=== PATIENT | male | born 1985 | race Caucasian/White ===

== ENCOUNTER 2018-08-05 14:48 | Emergency (ER) | payer SELFPAY ==
[2018-08-05] MEDS ORDERED: ONDANSETRON 4 MG (ODT) TAB ONE (16:26)
--- NOTE | 2018-08-05 17:26 | EDPHYS ---
Physician Documentation [facility] Name: Allan Daniel Age: 32 yrs Sex: Male : 1985 Arrival Date: 08/05/2018 Time: 14:51 Bed 17 Private MD: None, None ED Physician Onofre Rivers HPI: 08/05 16:15 This 32 yrs old Male presents to ER via Ambulatory with complaints of cp Vomiting/Diarrhea, Back Pain. 16:15 The patient presents to the emergency department with nausea, that is mild, vomiting, cp that is intermittent, diarrhea, that is intermittent. 16:15 Onset: The symptoms/episode began/occurred 4 day(s) ago. cp 16:15 Possible causes: flu. Associated signs and symptoms: Pertinent positives: back pain, cp Pertinent negatives: abdominal pain, constipation, dysuria, fever. Severity of symptoms: in the emergency department the symptoms are unchanged despite home interventions. Historical: - Allergies: 15:07 No Known Allergies; aa5 - Home Meds: 15:07 None [Active]; aa5 - PMHx: 15:07 Hypertension; aa5 - PSHx: 15:07 None; aa5 - Immunization history:: Flu vaccine is not up to date. - Social history:: Smoking status: Patient uses tobacco products, smokes one pack cigarettes per day. - Ebola Screening: : No symptoms or risks identified at this time. ROS: 16:25 Constitutional: Positive for body aches, Negative for chills, fever, poor PO intake. cp 16:25 Eyes: Negative for injury, pain, redness, and discharge. cp 16:25 ENT: Positive for sore throat, Negative for drainage from ear(s), ear pain, difficulty swallowing, difficulty handling secretions. 16:25 Cardiovascular: Negative for chest pain. 16:25 Respiratory: Positive for cough, with no reported sputum, Negative for shortness of breath, wheezing. 16:25 Abdomen/GI: Positive for nausea, vomiting, and diarrhea, Negative for abdominal pain, constipation. 16:25 Back: Positive for pain at rest. 16:25 : Negative for urinary symptoms. 16:25 Skin: Negative for cellulitis, rash. 16:25 Neuro: Negative for altered mental status, headache, weakness. 16:25 All other systems are negative. Exam: 16:30 Constitutional: The patient appears in no acute distress, alert, awake, cp non-diaphoretic, non-toxic, well developed, well nourished. 16:30 Head/Face: Normocephalic, atraumatic. cp 16:30 Eyes: Periorbital structures: appear normal, Conjunctiva: normal, no exudate, no injection, Sclera: no appreciated abnormality, Lids and lashes: appear normal, bilaterally. 16:30 ENT: External ear(s): are unremarkable, Ear canal(s): are normal, clear, TM's: bulging, is not appreciated, bilaterally, dullness, bilaterally, erythema, is not appreciated, bilaterally, Nose: is normal, Mouth: Lips: moist, Oral mucosa: moist, Posterior pharynx: Airway: no evidence of obstruction, patent, Tonsils: no enlargement, no exudate, swelling, is not appreciated, erythema, that is mild, exudate, is not appreciated, Voice: is normal. 16:30 Neck: ROM/movement: is normal, is supple, without pain, no range of motions limitations, no meningismus, no nuchal rigidity, Lymph nodes: no appreciated lymphadenopathy. 16:30 Chest/axilla: Inspection: normal, Palpation: is normal, no crepitus, no tenderness. 16:30 Cardiovascular: Rate: normal, Rhythm: regular. 16:30 Respiratory: the patient does not display signs of respiratory distress, Respirations: normal, no use of accessory muscles, no retractions, no splinting, no tachypnea, labored breathing, is not present, Breath sounds: are clear throughout, no decreased breath sounds, no stridor. 16:30 Abdomen/GI: Inspection: abdomen appears normal, Bowel sounds: active, all quadrants, Palpation: abdomen is soft and non-tender, in all quadrants. 16:30 Back: pain, is absent, ROM is normal. 16:30 Skin: cellulitis, is not appreciated, no rash present. 16:30 Neuro: Orientation: to person, place \T\ time. Mentation: is normal, Cerebellar function: is grossly normal, Motor: moves all fours, strength is normal, Sensation: is normal. Vital Signs: 15:08 BP 128 / 92; Pulse 89; Resp 18 S; Temp 98.4(TE); Pulse Ox 95% on R/A; Weight 83.91 kg aa5 (R); Height 5 ft. 6 in. (167.64 cm) (R); Pain 4/10; 17:11 BP 135 / 91; Pulse 90; Resp 18; Pulse Ox 99% on R/A; Pain 3/10; em 15:08 Body Mass Index 29.86 (83.91 kg, 167.64 cm) aa5 MDM: 15:49 Patient medically screened. cp 17:25 Data reviewed: vital signs, nurses notes, lab test result(s), and as a result, I will cp discharge patient. 17:25 Differential diagnosis: gastritis, gastroenteritis, influenza, strep. Counseling: I had cp a detailed discussion with the patient and/or guardian regarding: the historical points, exam findings, and any diagnostic results supporting the discharge/admit diagnosis, lab results, to return to the emergency department if symptoms worsen or persist or if there are any questions or concerns that arise at home. Response to treatment: the patient's symptoms have markedly improved after treatment, and as a result, I will discharge patient. 08/05 16:07 Order name: Influenza Screen (a \T\ B); Complete Time: 17:25 jr8 08/05 16:11 Order name: Strep; Complete Time: 17:25 eb 08/05 16:40 Order name: Urine Dipstick--Ancillary (enter results) 08/05 17:13 Order name: Throat Culture [facility] 08/05 16:11 Order name: Urine Dipstick-Ancillary (obtain specimen); Complete Time: 16:44 eb Administered Medications: 16:37 Drug: Zofran 4 mg Route: PO; em 17:11 Follow up: Response: No adverse reaction; Nausea is decreased em Disposition: 08/05/18 17:26 Discharged to Home. Impression: Vomiting, unspecified, Diarrhea, unspecified, Low back pain. - Condition is Stable. - Discharge Instructions: Food Choices to Help Relieve Diarrhea, Adult, Back Pain, Adult, Diarrhea, Adult, Vomiting, Adult. - Prescriptions for Zofran 4 mg Oral Tablet - take 1 tablet by ORAL route every 12 hours As needed; 20 tablet. Anaprox DS 550 mg Oral Tablet - take 1 tablet by ORAL route every 12 hours As needed; 20 tablet. - Work release form, Medication Reconciliation Form, Thank You Letter, Antibiotic Education, Prescription Opioid Use form. - Follow up: Emergency Department; When: As needed; Reason: Worsening of condition. - Problem is new. - Symptoms have improved. Addendum: 08/12/2018 06:30 Co-signature as Attending Physician, Onofre Rivers MD. g s Signatures: Dispatcher [employer] EDMS GaliciaHarsha, BRAND AMBASSADOR PROMOTIONAL MODEL BRAND AMBASSADOR PROMOTIONAL MODEL em Marlin Schwarz, RN RN aa5 Ned Silva, PA PA cp Onofre Rivers MD MD Tanja Bal Corrections: (The following items were deleted from the chart) 08/05 16:15 16:11 Urine Dipstick-Ancillary ordered. cp em 17:56 17:26 08/05/2018 17:26 Discharged to Home. Impression: Vomiting, unspecified; Diarrhea, em unspecified; Low back pain. Condition is Stable. Forms are Medication Reconciliation Form, Thank You Letter, Antibiotic Education, Prescription Opioid Use. Follow up: Emergency Department; When: As needed; Reason: Worsening of condition. Problem is new. Symptoms have improved. cp
--- NOTE | 2018-08-05 17:26 | ER ---
Nurse's Notes [facility] Name: Allan Daniel Age: 32 yrs Sex: Male : 1985 Arrival Date: 08/05/2018 Time: 14:51 Bed 17 Private MD: None, None Diagnosis: Vomiting, unspecified;Diarrhea, unspecified;Low back pain Presentation: 08/05 15:06 Presenting complaint: Patient states: mid-low back pain, nausea, vomiting, diarrhea aa5 that began 4 days ago. Pt states "last time I felt like this I had the flu". Transition of care: patient was not received from another setting of care. Onset of symptoms was July 2018. Risk Assessment: Do you want to hurt yourself or someone else? Patient reports no desire to harm self or others. Initial Sepsis Screen: Does the patient meet any 2 criteria? No. Patient's initial sepsis screen is negative. Does the patient have a suspected source of infection? No. Patient's initial sepsis screen is negative. Care prior to arrival: None. 15:06 Method Of Arrival: Ambulatory aa5 15:06 Acuity: DEBRA 3 aa5 Historical: - Allergies: 15:07 No Known Allergies; aa5 - Home Meds: 15:07 None [Active]; aa5 - PMHx: 15:07 Hypertension; aa5 - PSHx: 15:07 None; aa5 - Immunization history:: Flu vaccine is not up to date. - Social history:: Smoking status: Patient uses tobacco products, smokes one pack cigarettes per day. - Ebola Screening: : No symptoms or risks identified at this time. Screenin:00 Abuse screen: Denies threats or abuse. Nutritional screening: No deficits noted. em Tuberculosis screening: No symptoms or risk factors identified. Fall Risk None identified. Assessment: 16:00 General: Appears in no apparent distress. comfortable, Behavior is calm, cooperative, em Denies fever. Pain: Complains of pain in back Pain currently is 4 out of 10 on a pain scale. Neuro: Level of Consciousness is awake, alert, obeys commands, Oriented to person, place, time, situation. Cardiovascular: Capillary refill < 3 seconds Patient's skin is warm and dry. Respiratory: Reports cough that is productive, Airway is patent Respiratory effort is even, unlabored, Respiratory pattern is regular, symmetrical, Breath sounds are clear bilaterally. GI: Abdomen is round non-distended, Abd is soft X 4 quads Reports diarrhea, nausea, vomiting. : Urine is clear, Reports burning with urination. EENT: Oral mucosa is moist. Throat is clear Reports nasal congestion. Derm: Skin is intact, Skin is pink, warm \\T\\ dry. Musculoskeletal: Range of motion: intact in all extremities. 16:15 Reassessment: Patient appears in no apparent distress at this time. I agree with above iw assessment by Harsha Galicia LVN. 17:14 Reassessment: Patient appears in no apparent distress at this time. Patient and/or em family updated on plan of care and expected duration. Pain level reassessed. Patient is alert, oriented x 3, equal unlabored respirations, skin warm/dry/pink. 17:56 Reassessment: Patient appears in no apparent distress at this time. Patient and/or em family updated on plan of care and expected duration. Pain level reassessed. Patient is alert, oriented x 3, equal unlabored respirations, skin warm/dry/pink. Vital Signs: 15:08 BP 128 / 92; Pulse 89; Resp 18 S; Temp 98.4(TE); Pulse Ox 95% on R/A; Weight 83.91 kg aa5 (R); Height 5 ft. 6 in. (167.64 cm) (R); Pain 4/10; 17:11 BP 135 / 91; Pulse 90; Resp 18; Pulse Ox 99% on R/A; Pain 3/10; em 15:08 Body Mass Index 29.86 (83.91 kg, 167.64 cm) aa5 ED Course: 14:51 Patient arrived in ED. mr 14:52 None, None is Private Physician. mr 15:07 Triage completed. aa5 15:07 Arm band placed on. aa5 15:49 Ned Silva PA is PHCP. cp 15:49 Onofre Rivers MD is Attending Physician. cp 15:54 Harsha Galicia LVN is Primary Nurse. em 16:00 Patient has correct armband on for positive identification. Placed in gown. Bed in low em position. Call light in reach. 16:00 No provider procedures requiring assistance completed. em 17:55 Patient did not have IV access during this emergency room visit. em Administered Medications: 16:37 Drug: Zofran 4 mg Route: PO; em 17:11 Follow up: Response: No adverse reaction; Nausea is decreased em Outcome: 17:26 Discharge ordered by . cp 17:55 Discharged to home ambulatory. em 17:55 Condition: good 17:55 Discharge instructions given to patient, Instructed on discharge instructions, follow up and referral plans. medication usage, Demonstrated understanding of instructions, follow-up care, medications, Prescriptions given X 2. 17:56 Patient left the ED. em Signatures: Elizabeth Centeno mr GaliciaHarsha, STOCK BLENDER STOCK BLENDER em Sima Lea, RN RN iw Marlin Schwarz RN RN aa5 Ned Silva, PA PA cp
[2018-08-05 17:58] LABS: Urine Blood NEGATIVE (NEG); Urine Glucose NEGATIVE (NEG); Urine Protein NEGATIVE (NEG); Urine Specific Gravity 1.015 (1.005-1.030); Urine pH 6.5 (5.0-7.0)
== END 2018-08-05 17:56 | disposition home or self-care (01) ==
LOC: ER 14:48
DX: R11.10 Vomiting, unspecified (principal); R19.7 Diarrhea, unspecified; F17.210 Nicotine dependence, cigarettes, uncomplicated
CPT/HCPCS: 81003; 87070; 87081; 87804; 99283

== ENCOUNTER 2019-10-06 19:20 | Emergency (ER) | payer SELFPAY ==
[2019-10-06] MEDS ORDERED: CEFTRIAXONE 1000 MG/VIAL ONE (20:20)
[2019-10-06] MEDS ORDERED: LEVALBUTEROL 1.25 MG/3 ML NEB ONE ×3 (20:20→22:21)
[2019-10-06] MEDS ORDERED: OSELTAMIVIR 75 MG CAP ONE (20:20)
[2019-10-06] MEDS ORDERED: WATER FOR INJ,STERILE 10 ML ONE (20:21)
[2019-10-06] MEDS ORDERED: predniSONE 20 MG TAB ONE (20:21)
[2019-10-06] MEDS ORDERED: AZITHROMYCIN 250 MG TAB ONE ×2 (20:34→22:21)
[2019-10-06] MEDS ORDERED: IPRATROPIUM BROM 0.5MG/2.5ML ONE (20:53)
[2019-10-06] MEDS ORDERED: NA CHLORIDE 0.9% 1,000 ML ONE (21:25)
[2019-10-06] MEDS ORDERED: CEFTRIAXONE/SWI 1gm 1 GM/10 ML SYR ONE (21:25)
[2019-10-06 21:56] LABS: Absolute Lymphocytes (CBC) 0.9 K/uL (0.7-4.9); Basophils % 0.3 % (0-1.3); Hematocrit 48.7 % (39.6-49.0); Lymphocytes % 6.4 % (15.3-44.8); MPV 8.3 fL (7.6-11.3); RBC Red Blood Cell Count 5.34 M/uL (4.33-5.43)
[2019-10-06 22:09] LABS: ALT/SGPT 32 U/L (12-78); AST/SGOT 35 U/L (15-37); Albumin 3.5 g/dL (3.4-5.0); Alkaline Phosphatase 81 U/L (45-117); BUN Blood Urea Nitrogen 6 mg/dL (7-18); Bicarbonate 26 mmol/L (21-32); Bilirubin Total 0.6 mg/dL (0.2-1.0); Glucose Level 110 mg/dL (74-106); Protein, Total 8.3 g/dL (6.4-8.2); Sodium Level 127 mmol/L (136-145)
[2019-10-06 22:14] LABS: Potassium ND mmol/L (3.5-5.1)
[2019-10-06] MEDS ORDERED: AMOX/K CLAV 875 MG TAB ONE (23:05)
--- NOTE | 2019-10-06 23:07 | RAD REPORT ---
EXAM DESCRIPTION: RAD - Chest Pa And Lat (2 Views) - 10/06/2019 9:03 pm CLINICAL HISTORY: COUGH Chest pain. COMPARISON: No comparisons FINDINGS: Mild interstitial prominence is present suggesting viral pneumonitis or bronchitis. No foc al consolidation typical of pneumonia seen. The heart is normal in size. No displaced fractures.
--- NOTE | 2019-10-06 23:07 | EDPHYS ---
Physician Documentation [facility] Name: Allan Daniel Age: 33 yrs Sex: Male : 1985 Arrival Date: 10/06/2019 Time: 19:22 Bed 14 Private MD: ED Physician Ned Kramer HPI: 10/06 20:19 This 33 yrs old Male presents to ER via Ambulatory with complaints of Flu claudia Symptoms. 20:19 The patient has shortness of breath with light activity. Onset: The symptoms/episode claudia began/occurred 2 day(s) ago. Duration: The symptoms are continuous, and are steadily getting worse. The patient's shortness of breath is aggravated by supine position, talking. The patient presents to the emergency department with wheezing, Current therapy: None, that began while working. The patient or guardian reports difficulty breathing, flu symptoms, arthralgias, low-grade fever, myalgias. Historical: - Allergies: 19:28 No Known Allergies; aj1 - Home Meds: 19:28 None [Active]; aj1 - PMHx: 19:28 Hypertension; aj1 - PSHx: 19:28 None; aj1 - Immunization history:: Flu vaccine is up to date. - Social history:: Smoking status: Patient uses tobacco products, smokes two packs cigarettes per day. - Ebola Screening: : Patient denies travel to an Ebola-affected area in the 21 days before illness onset. - Family history:: not pertinent. ROS: 20:19 Constitutional: Negative for fever, chills, and weight loss, Eyes: Negative for injury, claudia pain, redness, and discharge, ENT: Negative for injury, pain, and discharge, Neck: Negative for injury, pain, and swelling, Cardiovascular: Negative for chest pain, palpitations, and edema, Abdomen/GI: Negative for abdominal pain, nausea, vomiting, diarrhea, and constipation, Back: Negative for injury and pain, : Negative for injury, bleeding, discharge, and swelling, MS/Extremity: Negative for injury and deformity, Skin: Negative for injury, rash, and discoloration, Neuro: Negative for headache, weakness, numbness, tingling, and seizure, Psych: Negative for depression, anxiety, suicide ideation, homicidal ideation, and hallucinations, Allergy/Immunology: Negative for hives, rash, and allergies, Endocrine: Negative for neck swelling, polydipsia, polyuria, polyphagia, and marked weight changes, Hematologic/Lymphatic: Negative for swollen nodes, abnormal bleeding, and unusual bruising. 20:19 Respiratory: Positive for cough, shortness of breath, on exertion. wheezing, inspiratory, expiratory. Exam: 20:19 Constitutional: This is a well developed, well nourished patient who is awake, alert, claudia and in no acute distress. Head/Face: Normocephalic, atraumatic. Eyes: Pupils equal round and reactive to light, extra-ocular motions intact. Lids and lashes normal. Conjunctiva and sclera are non-icteric and not injected. Cornea within normal limits. Periorbital areas with no swelling, redness, or edema. ENT: Nares patent. No nasal discharge, no septal abnormalities noted. Tympanic membranes are normal and external auditory canals are clear. Oropharynx with no redness, swelling, or masses, exudates, or evidence of obstruction, uvula midline. Mucous membranes moist. Neck: Trachea midline, no thyromegaly or masses palpated, and no cervical lymphadenopathy. Supple, full range of motion without nuchal rigidity, or vertebral point tenderness. No Meningismus. Chest/axilla: Normal chest wall appearance and motion. Nontender with no deformity. No lesions are appreciated. Abdomen/GI: Soft, non-tender, with normal bowel sounds. No distension or tympany. No guarding or rebound. No evidence of tenderness throughout. Back: No spinal tenderness. No costovertebral tenderness. Full range of motion. Male : Normal genitalia with no discharge or lesions. Skin: Warm, dry with normal turgor. Normal color with no rashes, no lesions, and no evidence of cellulitis. 20:19 Cardiovascular: Rate: tachycardic, Rhythm: regular, Pulses: Pulses are 4+ in bilateral radial, brachial, femoral, popliteal, posterior tibial and and dorsalis pedis arteries.. Heart sounds: normal, Edema: is not appreciated, JVD: is not appreciated. Vital Signs: 19:28 BP 135 / 87; Pulse 128; Resp 20; Temp 99.0; Pulse Ox 93% on R/A; Weight 83.91 kg (R); aj1 Height 5 ft. 6 in. (167.64 cm) (R); Pain 5/10; 20:28 BP 137 / 95; Pulse 110; Resp 18; Pulse Ox 98% on Nebulizer Mask; mg2 22:44 BP 125 / 83; Pulse 119; Resp 18; Temp 98.9(O); Pulse Ox 96% on R/A; mg2 23:07 BP 130 / 79; Pulse 122; Resp 16; Temp 98.8(O); Pulse Ox 96% ; lt1 19:28 Body Mass Index 29.86 (83.91 kg, 167.64 cm) aj1 MDM: 19:30 Patient medically screened. [facility] 20:21 Data reviewed: vital signs, nurses notes, lab test result(s), radiologic studies, plain claudia films. 10/06 20:08 Order name: Flu; Complete Time: 21:08 [facility] 10/06 21:11 Order name: CBC with Diff; Complete Time: 22:10 [facility] 10/06 20:08 Order name: Chest Pa And Lat (2 Views) XRAY [facility] 10/06 21:11 Order name: Comprehensive Metabolic Panel; Complete Time: 22:48 [facility] 10/06 21:11 Order name: Blood Culture Adult (2) [facility] 10/06 21:11 Order name: CT Chest W/ Con [facility] Administered Medications: 20:27 Drug: Rocephin (cefTRIAXone) 1 grams Route: IM; Site: left gluteus; mg2 22:00 Follow up: Response: No adverse reaction 20:28 Drug: predniSONE 40 mg Route: PO; mg2 21:59 Follow up: Response: No adverse reaction 20:28 Drug: Zithromax 500 mg Route: PO; mg2 21:59 Follow up: Response: No adverse reaction 20:28 Drug: Tamiflu 75 mg Route: PO; mg2 21:59 Follow up: Response: No adverse reaction wh 20:28 Drug: Xopenex 1.25 mg Route: Inhalation; mg2 20:53 Drug: Xopenex 1.25 mg Route: Inhalation; wh 20:53 Drug: AtroVENT Aerosol 0.5 mg Route: Inhalation; wh 21:40 Drug: NS 0.9% 1000 ml Route: IV; Rate: 1 bolus; Site: right antecubital; wh 23:32 Follow up: Response: No adverse reaction; IV Status: Completed infusion; IV Intake: mg2 1000ml 21:40 Drug: Rocephin 1 grams Route: IV; Rate: per protocol; Site: right antecubital; 23:08 Follow up: Response: No adverse reaction; IV Status: Completed infusion mg2 22:28 Drug: Xopenex 1.25 mg Route: Inhalation; mg2 23:32 Follow up: Response: No adverse reaction mg2 22:29 Drug: Zithromax 500 mg Route: PO; mg2 23:08 Follow up: Response: No adverse reaction mg2 23:07 Drug: Augmentin 875 mg Route: PO; mg2 23:31 Follow up: Response: No adverse reaction; Medication administered at discharge. mg2 23:07 Drug: Motrin 800 mg Route: PO; mg2 23:31 Follow up: Response: No adverse reaction; Medication administered at discharge. mg2 Disposition: 10/06/19 23:06 Discharged to Home. Impression: Acute upper respiratory infection, unspecified, Bronchitis, not specified as acute or chronic, Tobacco abuse counseling, Tobacco use, Fever, unspecified, Pneumonia due to other specified bacteria, Elevated white blood cell count. - Condition is Stable. - Discharge Instructions: Acute Bronchitis, Adult, Fever, Adult, Influenza, Adult, Community-Acquired Pneumonia, Adult, Steps to Quit Smoking, Smoking Hazards, Upper Respiratory Infection, Adult, Cool Mist Vaporizer, Upper Respiratory Infection, Adult, [id number], Community-Acquired Pneumonia, Adult, [id number], Influenza, Adult, [id number], Cough, Adult. - Prescriptions for Medrol (Zachariah) 4 mg Oral Tablets, Dose Pack - take 1 tablet by ORAL route as directed - follow package instructions; 1 packet. Albuterol Sulfate 90 mcg/actuation - inhale 1-2 puff by INHALATION route every 4-6 hours; 1 Inhaler. Tamiflu 75 mg Oral Capsule - take 1 tablet by ORAL route every 12 hours for 5 days; 10 tablet. Zithromax 500 mg Oral Tablet - take 1 tablet by ORAL route once daily for 5 days; 5 tablet. Augmentin 875- 125 mg Oral Tablet - take 1 tablet by ORAL route every 12 hours for 10 days; 20 tablet. - Medication Reconciliation Form, Thank You Letter, Antibiotic Education, Prescription Opioid Use, Work release form form. - Follow up: Private Physician; When: 2 - 3 days; Reason: Recheck today's complaints, Continuance of care, Re-evaluation by your physician. Follow up: Severo Petty; When: 2 - 3 days; Reason: Recheck today's complaints, Re-evaluation by your physician. - Problem is new. - Symptoms have improved. Signatures: Dispatcher [employer] Chantelle Alvarez RN RN aj1 Ned Kramer MD MD cha Habalo, Winsy wh Gardose, Michele, RN RN mg2 Corrections: (The following items were deleted from the chart) 23:32 23:06 10/06/2019 23:06 Discharged to Home. Impression: Acute upper respiratory mg2 infection, unspecified; Bronchitis, not specified as acute or chronic; Tobacco abuse counseling; Tobacco use; Fever, unspecified; Pneumonia due to other specified bacteria; Elevated white blood cell count. Condition is Stable. Discharge Instructions: Acute Bronchitis, Adult, Fever, Adult, Steps to Quit Smoking, Smoking Hazards, Upper Respiratory Infection, Adult, Cool Mist Vaporizer, Upper Respiratory Infection, Adult, [id number], Cough, Adult, Community-Acquired Pneumonia, Adult, Community-Acquired Pneumonia, Adult, [id number], Influenza, Adult, Influenza, Adult, [id number]. Prescriptions for Medrol (Zachariah) 4 mg Oral Tablets, Dose Pack - take 1 tablet by ORAL route as directed - follow package instructions; 1 packet, Albuterol Sulfate 90 mcg/actuation - inhale 1-2 puff by INHALATION route every 4-6 hours; 1 Inhaler, Tamiflu 75 mg Oral Capsule - take 1 tablet by ORAL route every 12 hours for 5 days; 10 tablet, Zithromax 500 mg Oral Tablet - take 1 tablet by ORAL route once daily for 5 days; 5 tablet, Augmentin 875-125 mg Oral Tablet - take 1 tablet by ORAL route every 12 hours for 10 days; 20 tablet. and Forms are Medication Reconciliation Form, Thank You Letter, Antibiotic Education, Prescription Opioid Use. Follow up: Private Physician; When: 2 - 3 days; Reason: Recheck today's complaints, Continuance of care, Re-evaluation by your physician. Follow up: Severo Petty; When: 2 - 3 days; Reason: Recheck today's complaints, Re-evaluation by your physician. Problem is new. Symptoms have improved. claudia
--- NOTE | 2019-10-06 23:07 | ER ---
[facility] Name[facility] Allan Daniel Age: 33 yrs Sex: Male : 1985 Arrival Date: 10/06/2019 Time: 19:22 Bed 14 Private MD: Diagnosis: Acute upper respiratory infection, unspecified;Bronchitis, not specified as acute or chronic;Tobacco abuse counseling;Tobacco use;Fever, unspecified;Pneumonia due to other specified bacteria;Elevated white blood cell count Presentation: 10/06 19:26 Presenting complaint: Patient states: For the past couple days he has been feeling ill, aj1 sore throat, headache, body aches, chills, and poor appetite. Reports cough and congestion. Denies N/V. Reports diarrhea. Transition of care: patient was not received from another setting of care. Onset of symptoms was 2019. Risk Assessment: Do you want to hurt yourself or someone else? Patient reports no desire to harm self or others. Initial Sepsis Screen: Does the patient meet any 2 criteria? HR > 90 bpm. No. Patient's initial sepsis screen is negative. Does the patient have a suspected source of infection? Yes: Productive cough/pneumonia. Care prior to arrival: None. 19:26 Method Of Arrival: Ambulatory aj1 19:26 Acuity: DEBRA 3 aj1 Triage Assessment: 19:28 General: Appears in no apparent distress. uncomfortable, Behavior is calm, cooperative, aj1 appropriate for age. Pain: Pain currently is 5 out of 10 on a pain scale. Neuro: Level of Consciousness is awake, alert, obeys commands, Oriented to person, place, time, situation. Cardiovascular: Patient's skin is warm and dry. Respiratory: Airway is patent Respiratory effort is even, unlabored, Respiratory pattern is regular, symmetrical. Historical: - Allergies: 19:28 No Known Allergies; aj1 - Home Meds: 19:28 None [Active]; aj1 - PMHx: 19:28 Hypertension; aj1 - PSHx: 19:28 None; aj1 - Immunization history:: Flu vaccine is up to date. - Social history:: Smoking status: Patient uses tobacco products, smokes two packs cigarettes per day. - Ebola Screening: : Patient denies travel to an Ebola-affected area in the 21 days before illness onset. - Family history:: not pertinent. Screenin:43 Abuse screen: Denies threats or abuse. Denies injuries from another. Nutritional mg2 screening: No deficits noted. Tuberculosis screening: No symptoms or risk factors identified. Fall Risk IV access (20 points). Assessment: 21:30 General: Appears in no apparent distress. comfortable, Behavior is calm, cooperative. mg2 Pain: Denies pain. Neuro: Level of Consciousness is awake, alert, obeys commands, Oriented to person, place, time, situation. Cardiovascular: Capillary refill < 3 seconds Patient's skin is warm and dry. Respiratory: Airway is patent Respiratory effort is even, unlabored, Respiratory pattern is regular, symmetrical. Respiratory: Reports cough that is productive. GI: No signs and/or symptoms were reported involving the gastrointestinal system. : No signs and/or symptoms were reported regarding the genitourinary system. EENT: Reports nasal congestion. Derm: Skin is intact, is healthy with good turgor, Skin is pink, warm \T\ dry. normal. Musculoskeletal: Circulation, motion, and sensation intact. Capillary refill < 3 seconds. 22:45 Reassessment: Patient appears in no apparent distress at this time. Patient and/or mg2 family updated on plan of care and expected duration. Pain level reassessed. Patient is alert, oriented x 3, equal unlabored respirations, skin warm/dry/pink. Respiratory: Breath sounds with wheezes in left posterior lower lobe. Vital Signs: 19:28 BP 135 / 87; Pulse 128; Resp 20; Temp 99.0; Pulse Ox 93% on R/A; Weight 83.91 kg (R); aj1 Height 5 ft. 6 in. (167.64 cm) (R); Pain 5/10; 20:28 BP 137 / 95; Pulse 110; Resp 18; Pulse Ox 98% on Nebulizer Mask; mg2 22:44 BP 125 / 83; Pulse 119; Resp 18; Temp 98.9(O); Pulse Ox 96% on R/A; mg2 23:07 BP 130 / 79; Pulse 122; Resp 16; Temp 98.8(O); Pulse Ox 96% ; lt1 19:28 Body Mass Index 29.86 (83.91 kg, 167.64 cm) aj1 ED Course: 19:22 Patient arrived in ED. jg7 19:28 Triage completed. aj1 19:28 Arm band placed on Patient placed in an exam room. aj1 19:30 Ned Kramer MD is Attending Physician. claudia 20:15 Darien Hunter, [place] is Primary Nurse. mg2 20:29 Flu Sent. lt1 21:03 Chest Pa And Lat (2 Views) XRAY In Process Unspecified. EDMS 21:40 Inserted saline lock: 20 gauge in right antecubital area, using aseptic technique. Blood collected. 22:01 CT Chest W/ Con In Process Unspecified. EDMS 22:43 Patient has correct armband on for positive identification. mg2 22:44 No provider procedures requiring assistance completed. mg2 23:05 Severo Petty MD is Referral Physician. claudia 23:30 IV discontinued, intact, bleeding controlled, No redness/swelling at site. Pressure mg2 dressing applied. Administered Medications: 20:27 Drug: Rocephin (cefTRIAXone) 1 grams Route: IM; Site: left gluteus; mg2 22:00 Follow up: Response: No adverse reaction 20:28 Drug: predniSONE 40 mg Route: PO; mg2 21:59 Follow up: Response: No adverse reaction 20:28 Drug: Zithromax 500 mg Route: PO; mg2 21:59 Follow up: Response: No adverse reaction 20:28 Drug: Tamiflu 75 mg Route: PO; mg2 21:59 Follow up: Response: No adverse reaction 20:28 Drug: Xopenex 1.25 mg Route: Inhalation; mg2 20:53 Drug: Xopenex 1.25 mg Route: Inhalation; 20:53 Drug: AtroVENT Aerosol 0.5 mg Route: Inhalation; 21:40 Drug: NS 0.9% 1000 ml Route: IV; Rate: 1 bolus; Site: right antecubital; 23:32 Follow up: Response: No adverse reaction; IV Status: Completed infusion; IV Intake: mg2 1000ml 21:40 Drug: Rocephin 1 grams Route: IV; Rate: per protocol; Site: right antecubital; 23:08 Follow up: Response: No adverse reaction; IV Status: Completed infusion mg2 22:28 Drug: Xopenex 1.25 mg Route: Inhalation; mg2 23:32 Follow up: Response: No adverse reaction mg2 22:29 Drug: Zithromax 500 mg Route: PO; mg2 23:08 Follow up: Response: No adverse reaction mg2 23:07 Drug: Augmentin 875 mg Route: PO; mg2 23:31 Follow up: Response: No adverse reaction; Medication administered at discharge. mg2 23:07 Drug: Motrin 800 mg Route: PO; mg2 23:31 Follow up: Response: No adverse reaction; Medication administered at discharge. mg2 Intake: 23:32 IV: 1000ml; Total: 1000ml. mg2 Outcome: 23:06 Discharge ordered by . claudia 23:31 Discharged to home ambulatory, with family. mg2 23:31 Condition: stable 23:31 Discharge instructions given to patient, family, Instructed on discharge instructions, follow up and referral plans. medication usage, Demonstrated understanding of instructions, follow-up care, medications, Prescriptions given X 5 23:32 Patient left the ED. mg2 Signatures: Dispatcher [employer] EDMS Chantelle Bateman RN RN aj1 Ned Kramer MD MD cha Habalo, Winsy wh Gardose, Michele, RN RN mg2 Yani, Sherin 1 Jessica Francoisg7 Corrections: (The following items were deleted from the chart) 22:45 22:44 BP 125 / 83; Pulse 123bpm; Resp 18bpm; Pulse Ox 96% RA; mg2 mg2
[2019-10-06] MEDS ORDERED: IBUPROFEN 400 MG TAB ONE (23:08)
[2019-10-07 01:14] VITALS: O2SAT 96
[2019-10-07 01:15] VITALS: BP 130/79; TEMP 98.8
--- NOTE | 2019-10-08 11:14 | RAD REPORT ---
EXAM DESCRIPTION: Thorax W/ Con TECHNIQUE: CT Thorax W/ Con CLINICAL HISTORY: 33 years Male diffuse pneumonia TECHNIQUE: Contiguous axial images obtained through the chest after IV contrast administration. Co fred and sagittal reformatted images provided. This CT exam was performed according to our departmental dose-optimization program, which includes on e or more of the following dose reduction techniques: automated exposure control, adjustment of the m A and/or kV according to patient size, and/or use of iterative reconstruction technique. COMPARISON: No prior exams provided for comparison. FINDINGS: There are scattered small groundglass infiltrates and a few ill-defined nodules throughout both lungs. No pleural effusion or pneumothorax. The central airways are patent. The heart is normal in size without pericardial effusion. The aorta and central pulmonary vasculature are normal in caliber. Shotty, likely reactive mediastinal lymph nodes. Visualized upper abdominal and osseous structures are unremarkable. IMPRESSION: Multifocal small airspace infiltrates and ill-defined nodules likely reflect infection. No pleural effusion or pneumothorax. Electronically signed by: Amita Wilkins MD 10/06/2019 10:19 PM LIAISON OFFICER Due to temporary technical issues with the PACS/Fluency reporting system, reports are being signed by the in house radiologist as a courtesy to ensure prompt reporting. The interpreting radiologist is f ully responsible for the content of the report.
== END 2019-10-06 23:32 | disposition home or self-care (01) ==
LOC: ER 19:20
DX: J15.8 Pneumonia due to other specified bacteria (principal); J40 Bronchitis, not specified as acute or chronic; D72.829 Elevated white blood cell count, unspecified; R50.9 Fever, unspecified; I10 Essential (primary) hypertension; Z72.0 Tobacco use; Z71.6 Tobacco abuse counseling
CPT/HCPCS: 36415; 71046; 71260; 80053; 85025; 87040; 87804; 96365; 96372; 99284; J0696; J7030; J7512; Q9967

== ENCOUNTER 2019-11-17 17:22 | Emergency (ER) | payer SELFPAY ==
--- NOTE | 2019-11-17 19:06 | ER ---
Nurse's Notes [facility] Name: Allan Daniel Age: 34 yrs Sex: Male : 1985 Arrival Date: 11/17/2019 Time: 17:25 Bed Waiting Private MD: Diagnosis: Presentation: 11/17 17:47 Presenting complaint: Patient states: Headache, dizziness, vomiting, chills since last aj1 night. Transition of care: patient was not received from another setting of care. Onset of symptoms was October 2019. Risk Assessment: Do you want to hurt yourself or someone else? Patient reports no desire to harm self or others. Initial Sepsis Screen: Does the patient meet any 2 criteria? HR > 90 bpm. No. Patient's initial sepsis screen is negative. Does the patient have a suspected source of infection? Yes: Acute abdominal pain. Care prior to arrival: None. 17:47 Method Of Arrival: Ambulatory aj1 17:47 Acuity: DEBRA 3 aj1 18:30 Note Patient states he is leaving because he does not want to wait anymore. aj1 Triage Assessment: 17:48 General: Appears in no apparent distress. uncomfortable, Behavior is calm, cooperative, aj1 appropriate for age. Pain: Complains of pain in top of head. Neuro: Level of Consciousness is awake, alert, obeys commands. Cardiovascular: Patient's skin is warm and dry. Respiratory: Airway is patent Respiratory effort is even, labored, Respiratory pattern is regular, symmetrical. GI: Reports nausea, vomiting. Historical: - Allergies: 17:48 No Known Allergies; aj1 - Home Meds: 17:48 None [Active]; aj1 - PMHx: 17:48 Hypertension; aj1 - PSHx: 17:48 None; aj1 - Immunization history:: Flu vaccine is not up to date. - Coronavirus screen:: The patient has NOT traveled to [place] in the past 14 days. - Social history:: Smoking status: Patient reports the use of cigarette tobacco products, smokes one pack cigarettes per day. - Ebola Screening: : Patient denies travel to an Ebola-affected area in the 21 days before illness onset. Vital Signs: 17:48 BP 134 / 92; Pulse 124; Resp 20; Temp 98.4; Pulse Ox 96% on R/A; Weight 74.84 kg (R); aj1 Height 5 ft. 5 in. (165.10 cm) (R); Pain 310; 17:48 Body Mass Index 27.46 (74.84 kg, 165.10 cm) aj1 ED Course: 17:25 Patient arrived in ED. as 17:48 Triage completed. aj1 17:48 Arm band placed on Patient placed in waiting room, Patient notified of wait time. aj1 18:06 [facility] snw 18:06 Luis Manuel Stone MD is Attending Physician. snw Administered Medications: No medications were administered Outcome: 19:05 Patient left the ED. aj1 Signatures: Chantelle Bateman RN RN aj1 Tiffanie Ni FNP-C FNP-Anuradha Alexander as
[2019-11-17 20:18] VITALS: BP 134/92; TEMP 98.4; O2SAT 96
== END 2019-11-17 19:05 | disposition left against medical advice (07) ==
LOC: ER 17:22
DX: R51 Headache (principal); Z53.21 Procedure and treatment not carried out due to patient leaving prior to being seen by health care provider
CPT/HCPCS: 99281

== ENCOUNTER 2022-11-15 13:08 | Emergency (ER) | payer SELFPAY ==
--- NOTE | 2022-11-15 13:59 | RAD REPORT ---
EXAM DESCRIPTION: RAD - Chest Single View - 11/15/2022 1:52 pm CLINICAL HISTORY: CHEST PAIN Chest pain. COMPARISON: Chest Pa And Lat (2 Views) dated 10/06/2019 FINDINGS: Portable technique limits examination quality. The lungs are grossly clear. The heart is normal in size. No displaced fractures. IMPRESSION: No acute intrathoracic process suspected.
[2022-11-15 15:34] LABS: Absolute Lymphocytes (CBC) 2.1 K/uL (0.7-4.9); Lymphocytes % 21.3 % (15.3-44.8); MCV 92.8 fL (80-100); MPV 7.5 fL (7.6-11.3)
[2022-11-15 15:38] LABS: Protime INR 0.95
[2022-11-15] MEDS ORDERED: NA CHLORIDE 0.9% 1,000 ML ONE (15:46)
[2022-11-15] MEDS ORDERED: ASPIRIN 81 MG CHEWABLE TABLET ONE (15:46)
[2022-11-15 15:47] LABS: SARS-CoV-2 Antigen Rapid Res Negative (Negative)
[2022-11-15 15:48] LABS: ALT/SGPT 22 U/L (16-61); AST/SGOT 16 U/L (15-37); Albumin 4.4 g/dL (3.4-5.0); Alkaline Phosphatase 92 U/L (45-117); BUN Blood Urea Nitrogen 8 mg/dL (7-18); Bicarbonate 27 mmol/L (21-32); Bilirubin Total 0.2 mg/dL (0.2-1.0); Glomerular Filtration Rate 114 ml/min (=/>90); Glucose Level 94 mg/dL (74-106); Lipase 102 U/L (73-393); Magnesium 2.6 mg/dL (1.6-2.4); Potassium 4.2 mmol/L (3.5-5.1); Protein, Total 8.8 g/dL (6.4-8.2); Sodium Level 135 mmol/L (136-145); Troponin High Sensitivity 3.4 pg/mL (<58.9)
[2022-11-15 15:56] LABS: Bilirubin Direct < 0.1 mg/dL (0-0.2); NT PRO-BNP < 5 pg/mL (<125)
[2022-11-15] MEDS ORDERED: LEVALBUTEROL 1.25 MG/3 ML NEB ONE (16:08)
[2022-11-15] MEDS ORDERED: METOPROLOL TAR 50 MG TAB ONE (16:08)
[2022-11-15 16:12] LABS: Urine Blood Negative (Negative); Urine Glucose Negative (Negative); Urine Protein 1+ (Negative); Urine pH 5.5 (5.0-7.0)
--- NOTE | 2022-11-15 16:24 | ER ---
Nurse's Notes [facility] Name: Allan Daniel Age: 37 yrs Sex: Male : 1985 Arrival Date: 11/15/2022 Time: 13:11 Bed 13 Private MD: Diagnosis: Essential (primary) hypertension;Chest pain, unspecified;Tobacco abuse counseling;Tobacco use Presentation: 11/15 13:34 Chief complaint: Patient states: Midsternal CP and high BP x 2 weeks, also numbness in jl7 bilateral fingers x several months. Coronavirus screen: At this time, the client does not indicate any symptoms associated with coronavirus-19. Ebola Screen: No symptoms or risks identified at this time. Initial Sepsis Screen: Does the patient meet any 2 criteria? No. Patient's initial sepsis screen is negative. Does the patient have a suspected source of infection? No. Patient's initial sepsis screen is negative. Risk Assessment: Do you want to hurt yourself or someone else? Patient reports no desire to harm self or others. Onset of symptoms is unknown. 13:34 Method Of Arrival: Ambulatory [facility] 13:34 Acuity: DEBRA 3 jl7 Historical: - Allergies: 13:36 No Known Allergies; jl7 - Home Meds: 13:36 None [Active]; jl7 - PMHx: 13:36 Hypertension; jl7 - PSHx: 13:36 None; jl7 - Immunization history:: Client reports having NOT received the Covid vaccine. - Social history:: Smoking status: Patient reports the use of cigarette tobacco products, smokes two packs cigarettes per day. Patient uses alcohol. Screenin:59 [facility] ED Fall Risk Assessment (Adult) History of falling in the last 3 months, mb9 including since admission No falls in past 3 months (0 pts) Confusion or Disorientation No (0 pts) Intoxicated or Sedated No (0 pts) Impaired Gait No (0 pts) Mobility Assist Device Used No (0 pt) Altered Elimination No (0 pt) Score/Fall Risk Level 0 - 2 = Low Risk Oriented to surroundings, Maintained a safe environment, Educated pt \\T\\ family on fall prevention, incl call for assistance when getting out of bed. Abuse screen: Denies threats or abuse. Nutritional screening: No deficits noted. Tuberculosis screening: No symptoms or risk factors identified. Assessment: 15:36 Reassessment: pt brought back to ER room. mb9 15:57 General: Appears in no apparent distress. Behavior is calm, cooperative, appropriate mb9 for age. Pain: Complains of pain in chest Pain does not radiate. Pain currently is 7 out of 10 on a pain scale. Quality of pain is described as "It feels like someone is sitting on my chest" Pain began 2 weeks ago Is intermittent. Neuro: Chadwick Agitation-Sedation Scale (RASS): 0 - Alert and Calm Level of Consciousness is awake, alert, obeys commands, Oriented to person, place, time, situation, Appropriate for age. Cardiovascular: Heart tones S1 S2 present Capillary refill < 3 seconds is brisk Patient's skin is warm and dry. Rhythm is sinus tachycardia. Respiratory: Airway is patent Respiratory effort is even, unlabored, Respiratory pattern is regular, symmetrical, Breath sounds are clear bilaterally. GI: Abdomen is round non-distended, Bowel sounds present X 4 quads. Abd is soft and non tender X 4 quads. : Urine is clear. EENT: No signs and/or symptoms were reported regarding the EENT system. Derm: Skin is pink, warm \\T\\ dry. Musculoskeletal: Range of motion: intact in all extremities. 16:47 Reassessment: Per Dr. Kramer, drawing another troponin level before pt can be mb9 discharged. 16:56 Reassessment: No changes from previously documented assessment. Patient and/or family mb9 updated on plan of care and expected duration. Pain level reassessed. Patient is alert, oriented x 3, equal unlabored respirations, skin warm/dry/pink. Patient states symptoms have improved. Vital Signs: 13:34 BP 142 / 99; Pulse 108; Resp 19 S; Temp 98.1(O); Pulse Ox 96% on R/A; Weight 72.57 kg; jl7 Height 5 ft. 6 in. (167.64 cm); Pain 7/10; 15:56 BP 126 / 93; Pulse 96; Resp 20; Pulse Ox 95% on R/A; mb9 16:48 BP 155 / 99; Pulse 91; Resp 20; Pulse Ox 96% on R/A; mb9 13:34 Body Mass Index 25.82 (72.57 kg, 167.64 cm) 7 ED Course: 13:11 Patient arrived in ED. mr 13:35 Ned Kramer MD is Attending Physician. claudia 13:36 Triage completed. jl7 13:36 Arm band placed on right wrist. jl7 15:21 Inserted saline lock: 20 gauge in left antecubital area, using aseptic technique. Blood zm collected. 15:22 SARS RAPID Sent. zm 15:22 Lipase Sent. zm 15:22 Basic Metabolic Panel Sent. zm 15:22 CBC with Diff Sent. zm 15:22 LFT's Sent. zm 15:22 Magnesium Sent. zm 15:22 NT PRO-BNP Sent. zm 15:22 PT-INR Sent. zm 15:22 Troponin HS Sent. zm 15:30 Placed in gown. Bed in low position. Call light in reach. Side rails up X 1. Client mb9 placed on continuous cardiac and pulse oximetry monitoring. NIBP monitoring applied. jewel waxer on. 15:36 Elizabeth Morrow, [place] is Primary Nurse. mb9 16:23 Agusto Heredia MD is Referral Physician. claudia 16:56 No provider procedures requiring assistance completed. IV discontinued, intact, mb9 bleeding controlled, No redness/swelling at site. Pressure dressing applied. 17:10 Troponin High Sensitivity: now Sent. mb9 Administered Medications: 15:38 Drug: NS 0.9% 1000 ml Route: IV; Rate: 125 ml/hr; Site: right antecubital; mb9 17:10 Follow up: IV Status: Completed infusion mb9 15:51 Drug: Aspirin Chewable Tablet 324 mg Route: PO; mb9 16:12 Follow up: Response: No adverse reaction mb9 16:11 Drug: Xopenex (levalbuterol) 1.25 mg Route: Inhalation; mb9 16:11 Drug: Lopressor (metoprolol TARTRATE) 50 mg Route: PO; mb9 17:10 Follow up: Response: No adverse reaction mb9 Medication: 15:59 VIS not applicable for this client. mb9 Outcome: 16:24 Discharge ordered by . claudia 17:25 Discharged to home ambulatory. mb9 17:25 Condition: stable 17:25 Discharge instructions given to patient, Instructed on discharge instructions, follow up and referral plans. Demonstrated understanding of instructions, follow-up care, medications, Prescriptions given X 2. 17:26 Patient left the ED. mb9 Signatures: Ned Kramer MD MD cha Rivera, Mary mr Leal, Jahala, RN RN jl7 Mare Orozco, Elizabeth Anglin, RN RN mb9
--- NOTE | 2022-11-15 16:24 | EDPHYS ---
Physician Documentation [facility] Name: Allan Daniel Age: 37 yrs Sex: Male : 1985 Arrival Date: 11/15/2022 Time: 13:11 Bed 13 Private MD: EDDIE Physician Ned Kramer HPI: 11/15 16:00 This 37 yrs old Male presents to ER via Ambulatory with complaints of Chest claudia Pain, High Blood Pressure. 16:00 The patient or guardian reports chest pain that is located primarily in the anterior [facility] chest wall, bilaterally. The pain does not radiate. Associated signs and symptoms: Pertinent positives: dizziness. The chest pain is described as aching. Duration: The patient or guardian reports multiple episodes, with no pattern. Modifying factors: The symptoms are alleviated by nothing. the symptoms are aggravated by nothing. Severity of pain: At its worst the pain was mild in the emergency department the pain is unchanged. The patient has experienced similar episodes in the past, multiple times. Historical: - Allergies: 13:36 No Known Allergies; jl7 - Home Meds: 13:36 None [Active]; jl7 - PMHx: 13:36 Hypertension; jl7 - PSHx: 13:36 None; jl7 - Immunization history:: Client reports having NOT received the Covid vaccine. - Social history:: Smoking status: Patient reports the use of cigarette tobacco products, smokes two packs cigarettes per day. Patient uses alcohol. ROS: 16:01 Constitutional: Negative for fever, chills, and weight loss, Eyes: Negative for injury, claudia pain, redness, and discharge, ENT: Negative for injury, pain, and discharge, Neck: Negative for injury, pain, and swelling, Respiratory: Negative for shortness of breath, cough, wheezing, and pleuritic chest pain, Abdomen/GI: Negative for abdominal pain, nausea, vomiting, diarrhea, and constipation, Back: Negative for injury and pain, : Negative for injury, bleeding, discharge, and swelling, MS/Extremity: Negative for injury and deformity, Skin: Negative for injury, rash, and discoloration, Neuro: Negative for headache, weakness, numbness, tingling, and seizure, Psych: Negative for depression, anxiety, suicide ideation, homicidal ideation, and hallucinations, Allergy/Immunology: Negative for hives, rash, and allergies, Endocrine: Negative for neck swelling, polydipsia, polyuria, polyphagia, and marked weight changes, Hematologic/Lymphatic: Negative for swollen nodes, abnormal bleeding, and unusual bruising. 16:01 Neck: Positive for 16:01 Cardiovascular: Positive for chest pain, of the chest. Exam: 16:01 Constitutional: This is a well developed, well nourished patient who is awake, alert, claudia and in no acute distress. Head/Face: Normocephalic, atraumatic. Eyes: Pupils equal round and reactive to light, extra-ocular motions intact. Lids and lashes normal. Conjunctiva and sclera are non-icteric and not injected. Cornea within normal limits. Periorbital areas with no swelling, redness, or edema. ENT: Nares patent. No nasal discharge, no septal abnormalities noted. Tympanic membranes are normal and external auditory canals are clear. Oropharynx with no redness, swelling, or masses, exudates, or evidence of obstruction, uvula midline. Mucous membranes moist. Neck: Trachea midline, no thyromegaly or masses palpated, and no cervical lymphadenopathy. Supple, full range of motion without nuchal rigidity, or vertebral point tenderness. No Meningismus. Cardiovascular: Regular rate and rhythm with a normal S1 and S2. No gallops, murmurs, or rubs. Normal PMI, no JVD. No pulse deficits. Respiratory: Lungs have equal breath sounds bilaterally, clear to auscultation and percussion. No rales, rhonchi or wheezes noted. No increased work of breathing, no retractions or nasal flaring. Abdomen/GI: Soft, non-tender, with normal bowel sounds. No distension or tympany. No guarding or rebound. No evidence of tenderness throughout. Back: No spinal tenderness. No costovertebral tenderness. Full range of motion. Male : Normal genitalia with no discharge or lesions. Skin: Warm, dry with normal turgor. Normal color with no rashes, no lesions, and no evidence of cellulitis. MS/ Extremity: Pulses equal, no cyanosis. Neurovascular intact. Full, normal range of motion. Neuro: Awake and alert, GCS 15, oriented to person, place, time, and situation. Cranial nerves II-XII grossly intact. Motor strength 5/5 in all extremities. Sensory grossly intact. Cerebellar exam normal. Normal gait. Psych: Awake, alert, with orientation to person, place and time. Behavior, mood, and affect are within normal limits. 16:01 Chest/axilla: Inspection: normal, no abrasion, no abscess, no assymetry, no cellulitis, no deformity, no ecchymosis, no evidence of flail chest, no paradoxical chest wall movement, no puncture, no rash, no scar(s), Palpation: tenderness, that is mild, of the anterior aspect of right upper chest, anterior aspect of left upper chest, mid-sternal area, right breast and left breast. 16:01 ECG was reviewed by the Attending Physician. 16:14 Respiratory: the patient does not display signs of respiratory distress, Respirations: claudia normal, no acute changes, is not noted, Breath sounds: bronchial sounds, that are mild, are scattered, decreased breath sounds, that are mild, are scattered, rhonchi, that are mild, are scattered, stridor, is not appreciated, + upper airway congestion. 16:14 Musculoskeletal/extremity: ROM: no acute changes, intact in all extremities, full active range of motion, full passive range of motion, Circulation is intact in all extremities. Sensation intact. Compartment Syndrome exam of affected extremity: is normal. no pain, no numbness, no tingling, no sensation deficit, no palor, no weak pulses, DVT Exam: No signs of deep vein thrombosis. no pain, no swelling, no tenderness, negative Homans' sign noted on exam, no appreciated bluish discoloration, no erythema, no increased warmth. 16:14 Neuro: Orientation: is normal, appropriate for stated age, no acute changes, Mentation: is normal, appropriate for stated age, no acute changes, Memory: is normal, appropriate for stated age, no acute changes, Cranial nerves: grossly normal, is grossly normal based on the patient's age, no acute changes, Cerebellar function: is grossly normal, is grossly normal based on the patient's age, no acute changes, Sensation: is normal, no obvious gross deficits, appropriate no acute changes, Gait: is steady, appropriate for age, Deep tendon reflexes are 2+ (normal) in the bilateral brachioradialis, bicep, tricep and patellar and Achilles tendons, Babinski testing is normal, seizure activity, is not displayed by the patient. Vital Signs: 13:34 BP 142 / 99; Pulse 108; Resp 19 S; Temp 98.1(O); Pulse Ox 96% on R/A; Weight 72.57 kg; jl7 Height 5 ft. 6 in. (167.64 cm); Pain 7/10; 15:56 BP 126 / 93; Pulse 96; Resp 20; Pulse Ox 95% on R/A; mb9 16:48 BP 155 / 99; Pulse 91; Resp 20; Pulse Ox 96% on R/A; mb9 13:34 Body Mass Index 25.82 (72.57 kg, 167.64 cm) jl7 MDM: 13:35 Patient medically screened. claudia 16:10 Differential diagnosis: abnormal EKG, acute myocardial infarction, acute pericarditis, claudia anxiety, chest wall pain, Cholelithiasis costochondritis, hiatal hernia, pancreatitis, pneumonia, pulmonary embolus, stable angina, thoracic aortic disection, unstable angina. HEART Score: History: Slightly Suspicious (0), ECG: Normal (0), Age: < or = 45 years (0), Risk Factors: > or = 3 Risk factors for atherosclerotic disease (2), [Hypertension] [Active Smoker] [+ Family HX] Troponin: < or = 1 x Normal Limit (0). KATHE Risk Score: 1 - Three or more CAD risk factors, TOTAL SCORE = 1. Data reviewed: vital signs, nurses notes, lab test result(s), EKG, radiologic studies, plain films. Consideration of Admission/Observation Escalation of care including admission/observation considered. I considered the following discharge prescriptions or medication management in the emergency department Medications were administered in the Emergency Department. See MAR. Test considered but Not performed: CT: ct aorta. 11/15 13:36 Order name: Basic Metabolic Panel 11/15 13:36 Order name: CBC with Diff 11/15 13:36 Order name: LFT's 11/15 13:36 Order name: Magnesium 11/15 13:36 Order name: NT PRO-BNP 11/15 13:36 Order name: PT-INR 11/15 13:36 Order name: Troponin HS 11/15 13:36 Order name: Lipase 11/15 13:36 Order name: SARS RAPID 11/15 15:34 Order name: CBC with Automated Diff; Complete Time: 15:42 EDMS 11/15 15:39 Order name: Protime (+INR); Complete Time: 15:42 EDDC 11/15 15:47 Order name: SARS-COV-2 Antigen Rapid; Complete Time: 15:57 EDDC 11/15 15:57 Order name: Basic Metabolic Panel; Complete Time: 15:57 EDDC 11/15 15:57 Order name: Liver (Hepatic) Function; Complete Time: 15:57 EDDC 11/15 13:36 Order name: XRAY Chest (1 view) [facility] 11/15 13:36 Order name: EKG; Complete Time: 13:38 [facility] 11/15 13:36 Order name: Cardiac monitoring; Complete Time: 15:37 [facility] 11/15 13:36 Order name: EKG - Nurse/Tech; Complete Time: 15:22 [facility] 11/15 14:00 Order name: RAD; Complete Time: 15:42 EDDC 11/15 15:57 Order name: Troponin High Sensitivity; Complete Time: 15:57 EDDC 11/15 15:57 Order name: NT PRO-BNP; Complete Time: 15:57 [facility] 11/15 15:57 Order name: Magnesium; Complete Time: 15:57 EDDC 11/15 15:57 Order name: Lipase; Complete Time: 15:57 [facility] 11/15 16:12 Order name: Urine Dipstick-Ancillary; Complete Time: 16:14 [facility] 11/15 16:29 Order name: Troponin High Sensitivity: now 11/15 17:13 Order name: Troponin High Sensitivity [facility] 11/15 13:36 Order name: IV Saline Lock; Complete Time: 15:22 [facility] 11/15 13:36 Order name: Labs collected and sent; Complete Time: 15:22 [facility] 11/15 13:36 Order name: O2 Per Protocol; Complete Time: 15:37 [facility] 11/15 13:36 Order name: O2 Sat Monitoring; Complete Time: 15:37 [facility] 11/15 13:36 Order name: Urine Dipstick-Ancillary (obtain specimen); Complete Time: 16:12 [facility] EC:01 Rate is 103 beats/min. Rhythm is regular. QRS [place] is Normal. VT interval is normal. QT claudia interval is normal. No Q waves. T waves are Normal. Clinical impression: NSR w/ Non-specific ST/T Changes and No evidence of ischemia. Interpreted by me. Reviewed by me. Administered Medications: 15:38 Drug: NS 0.9% 1000 ml Route: IV; Rate: 125 ml/hr; Site: right antecubital; mb9 17:10 Follow up: IV Status: Completed infusion mb9 15:51 Drug: Aspirin Chewable Tablet 324 mg Route: PO; mb9 16:12 Follow up: Response: No adverse reaction mb9 16:11 Drug: Xopenex (levalbuterol) 1.25 mg Route: Inhalation; mb9 16:11 Drug: Lopressor (metoprolol TARTRATE) 50 mg Route: PO; mb9 17:10 Follow up: Response: No adverse reaction mb9 Disposition Summary: 11/15/22 16:24 Discharge Ordered Location: Home claudia Problem: new claudia Symptoms: have improved claudia Condition: Stable claudia Diagnosis - Essential (primary) hypertension claudia - Chest pain, unspecified claudia - Tobacco abuse counseling claudia - Tobacco use claudia Followup: claudia - With: Private Physician - When: 2 - 3 days - Reason: Recheck today's complaints, Continuance of care, Re-evaluation by your physician Followup: claudia - With: Agusto Heredia MD - When: 2 - 3 days - Reason: Recheck today's complaints, Re-evaluation by your physician Discharge Instructions: - Discharge Summary Sheet claudia - Nonspecific Chest Pain, Adult claudia - Hypertension, Adult claudia - Health Risks of Smoking claudia - Hypertension, Adult, [id number] claudia - Aspirin and Your Heart claudia - Managing Your Hypertension claudia Forms: - Medication Reconciliation Form claudia - Thank You Letter claudia - Antibiotic Education claudia - Prescription Opioid Use claudia Prescriptions: - Toprol XL 50 mg Oral Tablet - take 1 tablet by ORAL route once daily; 20 tablet; Refills: 0, Product claudia Selection Permitted - albuterol sulfate 90 mcg/actuation Inhalation HFA aerosol inhaler - inhale 2 puff by INHALATION route every 4-6 hours; 1 Pump; Refills: 0, Product cluadia Selection Permitted Signatures: Dispatcher [employer] Ned Johnson MD MD cha Leal, Jahala RN RN jl7 Elizabeth Morrow RN RN mb9
--- NOTE | 2022-11-15 16:36 | EKG ---
Test Date: 2022-11-15 Test Time: 13:45:01 Ndt Inspector: RICKY MEASUREMENT RESULTS: Intervals: Rate: 103 [place]: 162 QRSD: 80 QT: 322 QTc: 421 [place]: P: 70 [place]: 162 QRS: 62 T: 64 INTERPRETIVE STATEMENTS: Sinus tachycardia Otherwise normal ECG Compared to ECG 01/01/2015 15:28:09 No significant changes Electronically Signed On 11-15-22 16:36:02 [employer] by Agusto Heredia
[2022-11-15 18:48] VITALS: TEMP 98.1
[2022-11-15 18:50] VITALS: BP 155/99; O2SAT 96
== END 2022-11-15 17:26 | disposition home or self-care (01) ==
LOC: ER 13:08
DX: R07.89 Other chest pain (principal); I10 Essential (primary) hypertension; Z72.0 Tobacco use; Z71.6 Tobacco abuse counseling
CPT/HCPCS: 36415; 71045; 80048; 80076; 81003; 83690; 83735; 83880; 84484; 85025; 85610; 87811; 93005; 96360; 96361; 99285; J7030; J7614